=== PATIENT | female | born 1965 | race Two or more races ===

== ENCOUNTER → 2018-09-09 13:54 | Emergency (ER) | payer OTHER ==
--- NOTE | 2018-09-09 14:21 | ED ---
Substance Abuse/Use - HPI Summary HPI Summary: Patient is a 52 year old F brought in by EMS presenting to the ED with a chief complaint of alcohol intoxication. Patient was at a lawn constitution party when she drank an excessive amount. Patient was witnessed falling to her knees causing abrasions and swelling bilaterally. There was no head injury or LOC. Patients is rating knee pain 3/10. She has a Hx of sciatica which caused her low back pain. There are no aggravating or alleviating factors. Patient has a prior Hx of depression, anxiety, and PTSD from when she was 17 years old. Patient is asking for her sister to be called. - History Of Current Complaint Chief Complaint: EDSubstanceAbuse Stated Complaint: FALL PER EMS Time Seen by Provider: 09/09/18 14:04 Hx Obtained From: Patient, EMS Onset/Duration of Drug/ETOH Abuse: Days - 1 Ingestion History: Type/Name Of Drug - Beer Overdose Characteristics: Oral Timing Of Abuse: Intermittent Aggravating Factor(s): Nothing Alleviating Factor(s): Nothing Associated Signs And Symptoms: Altered Mental Status, Other: - bilateral knee abrasions and contusions - Allergies/Home Medications Allergies/Adverse Reactions: Allergies Allergy/AdvReac Type Severity Reaction Status Date / Time morphine Allergy Itching Verified 09/09/18 14:34 Sulfa (Sulfonamide Allergy Hives Verified 09/09/18 14:34 Antibiotics) PMH/Surg Hx/FS Hx/Imm Hx Previously Healthy: No Endocrine/Hematology History: Reports: Hx Thyroid Disease - hyper - resolved now Denies: Hx Diabetes Cardiovascular History: Denies: Hx Hypertension Respiratory History: Reports: Hx Asthma Denies: Hx Chronic Obstructive Pulmonary Disease (COPD) GI History: Denies: Hx Ulcer History: Reports: Other Problems/Disorders - UTI Sensory History: Reports: Hx Contacts or Glasses Opthamlomology History: Reports: Hx Contacts or Glasses Psychiatric History: Reports: Hx Substance Abuse - etoh - Cancer History Cancer Type, Location and Year: Breast CA Hx Chemotherapy: Yes - Surgical History Surgery Procedure, Year, and Place: laser to cervix r/t dysplagia 20 years ago Infectious Disease History: No Infectious Disease History: Denies: Hx Clostridium Difficile, Hx Hepatitis, Hx Human Immunodeficiency Virus (HIV), Hx of Known/Suspected MRSA, Hx Shingles, Hx Tuberculosis, Traveled Outside the [place] in Last 30 Days - Family History Known Family History: Positive: Other - Negative: cancer Negative: Cardiac Disease - Social History Alcohol Use: None Hx Substance Use: No Substance Use Type: Reports: None Hx Tobacco Use: No Smoking Status (MU): Never Smoked Tobacco Review of Systems Negative: Fever Positive: Other - Bilateral knee abrasion and swelling Neurological: Other - Altered Mental Status All Other Systems Reviewed And Are Negative: Yes Physical Exam - Summary Physical Exam Summary: Constitutional: Well-developed, Well-nourished, Alert. (-) Distressed Skin: Warm, Dry HENT: Normocephalic; Atraumatic Eyes: Conjunctiva normal Neck: Musculoskeletal ROM normal neck. (-) JVD, (-) Stridor, (-) Tracheal deviation Cardio: Rhythm regular, rate normal, Heart sounds normal; Intact distal pulses; The pedal pulses are 2+ and symmetric. Radial pulses are 2+ and symmetric. (-) Murmur Pulmonary/Chest wall: Effort normal. (-) Respiratory distress, (-) Wheezes, (-) Rales Abd: Soft, (-) tenderness, (-) Distension, (-) Guarding, (-) Rebound Musculoskeletal: (-) Edema, Knee abrasions on distal portion of knee Lymph: (-) Cervical adenopathy Neuro: Alert, Oriented x3 Psych: Mood and affect Normal Triage Information Reviewed: Yes Vital Signs On Initial Exam: Initial Vitals Temp Pulse Resp BP Pulse Ox 97.5 F 80 17 111/74 98 09/09/18 14:01 09/09/18 14:01 09/09/18 14:01 09/09/18 14:01 09/09/18 14:01 Vital Signs Reviewed: Yes Diagnostics - Vital Signs Vital Signs Temp Pulse Resp BP Pulse Ox 09/09/18 14:01 97.5 F 80 17 111/74 98 - Laboratory Lab Statement: Any lab studies that have been ordered have been reviewed, and results considered in the medical decision making process. Re-Evaluation - Re-Evaluation First Eval Re-Evaluation Time: 15:00 Comment: Patient was agitated but was able to be calmed down with discussion. Patient was ambulatory and was discharged with her sister. Course/Dx - Course Course Of Treatment: Patient is a 52 year old F brought in by EMS presenting to the ED with a chief complaint of alcohol intoxication. Patient was at a lawn constitution party when she drank an excessive amount. Patient was witnessed falling to her knees causing abrasions and swelling bilaterally. Patient was discharged to home with her sister. Diagnosed as knee abrasions, knee contusions, and acute alcohol intoxication. - Diagnoses Differential Diagnosis/HQI/PQRI: Positive: Alcohol Abuse, Other - Knee contusion , Knee abrasion Provider Diagnoses: Acute alcohol intoxication, Knee abrasion, Knee contusion Discharge - Sign-Out/Discharge Documenting (check all that apply): Patient Departure - discharge Patient Received Moderate/Deep Sedation with Procedure: No - Discharge Plan Condition: Stable Disposition: HOME Patient Education Materials: Abuse of Alcohol (ED), Knee Pain (ED) Referrals: Brianne Raygoza NP [Primary Care Provider] - 1 Day Additional Instructions: Follow up with your primary care physician in one day. Return to the emergency department for any new or worsening symptoms. - Billing Disposition and Condition Condition: STABLE Disposition: Home - Attestation Statements Document Initiated by Rhonda: Yes Documenting Scribe: Mark Gross Provider For Whom Rhonda is Documenting (Include Credential): Rajni Perrin MD Scribe Attestation: Mark Siu, scribed for Rajni Bueno MD on 09/09/18 at 1904. Scribe Documentation Reviewed: Yes Provider Attestation: The documentation as recorded by the Mark camacho accurately reflects the service I personally performed and the decisions made by , Rajni Bueno MD Status of Scribe Document: Viewed
[2018-09-09 14:44] VITALS: BP 123/75
== END | disposition home or self-care (01) ==
LOC: ED 13:54
DX: F10.129 Alcohol abuse with intoxication, unspecified (principal); R41.82 Altered mental status, unspecified; S80.212A Abrasion, left knee, initial encounter; S80.211A Abrasion, right knee, initial encounter; S80.02XA Contusion of left knee, initial encounter; S80.01XA Contusion of right knee, initial encounter; Z88.6 Allergy status to analgesic agent; Z88.2 Allergy status to sulfonamides; Z85.3 Personal history of malignant neoplasm of breast; W19.XXXA Unspecified fall, initial encounter; Y92.9 Unspecified place or not applicable
CPT/HCPCS: 99283

== ENCOUNTER 2022-02-07 21:32 | Inpatient (IN) ==
[2022-02-07] MEDS ORDERED: Albuterol HFA INHALER 8 gm MDI INH ONE (22:15)
[2022-02-07 23:41] LABS: ABS Lymphocytes 0.5 10^3/ul (1.0-4.8); ABS Monocytes 0.3 10^3/ul (0-0.8); ABS Neutrophils 4.6 10^3/ul (1.5-7.7); Eosinophil % 0.8 %; Hematocrit 31 % (35-47); Lymphocyte % 9.4 %; Mean Corpuscular HGB Conc 33 g/dL (31-36); Mean Corpuscular Hemoglobin 30 pg (27-31); Mean Corpuscular Volume 90 fL (80-97); Mean Platelet Volume 6.8 fL (7.4-10.4); Platelet Count 309 10^3/uL (150-450); Red Cell Distribution Width 14 % (10-15); White Blood Count 5.5 10^3/uL (3.5-10.8)
[2022-02-07 23:57] LABS: INR 1.16 (0.89-1.11)
[2022-02-08 00:05] LABS: Albumin 3.3 g/dL (3.2-5.2); Albumin/Globulin Ratio 1.3 (1-3); C Reactive Protein 39.07 mg/L (<8.01); Calcium 8.1 mg/dL (8.6-10.3); Globulin 2.5 g/dL (2-4); Potassium 3.9 mmol/L (3.5-5.0); Total Bilirubin 0.3 mg/dL (0.2-1.0); Total Protein 5.8 g/dL (6.4-8.9); eGFR CKD-EPI 102.2 (>60)
[2022-02-08 02:18] LABS: High Sensitivity Troponin 1 Hr 31 pg/mL (<15)
[2022-02-08] MEDS ORDERED: Iohexol 350 (CONTRAST) 500 ML MDV IV ONE (05:46)
[2022-02-08] MEDS ORDERED: Furosemide 20 mg/2 ml IV VIAL IV ONE (06:13)
[2022-02-08] MEDS ORDERED: HYDROcodone/ACETAMIN 5/325 mg TAB PO PRN (08:53)
[2022-02-08] MEDS ORDERED: Remdesivir 100 mg Vial 200 MG in NS 0.9% 250 ml 210 ML IV ONE (09:15)
[2022-02-08 09:40] LABS: TSH Ultra Thyroid Stim Horm 0.7 mcIU/mL (0.34-5.60)
[2022-02-08] MEDS: Enoxaparin 40 MG/0.4 ML SYR SUBCUT SCH (10:11)
[2022-02-08] MEDS: cefTRIAXone 1 gm/50 mL D5W 1 GM/50 ML BAG IV SCH (13:25)
[2022-02-08] MEDS: DOXYcycline 100 MG in NS 0.9% 250 ml 250 ML IVPB SCH ×2 (14:29→22:29)
[2022-02-08] MEDS: Albuterol HFA INHALER 8 gm MDI INH PRN (16:21)
[2022-02-08] MEDS ORDERED: Sodium Chloride(INHALANT) 7% 4 ML NEB.SOLN INH PRN (17:48)
[2022-02-08] MEDS ORDERED: Sodium Chloride(INHALANT) 7% 4 ML NEB.SOLN INH SCH (19:00)
[2022-02-08 22:30] LABS: Urine Benzodiazepine Screen Presumptive Positive (None Detect); Urine Cannabinoids Screen Presumptive Positive (None Detect); Urine Opiates Screen None Detected (None Detect)
[2022-02-09] MEDS: Albuterol HFA INHALER 8 gm MDI INH PRN ×2 (02:47→10:23)
[2022-02-09 05:20] LABS: ABS Lymphocytes 1.2 10^3/ul (1.0-4.8); ABS Monocytes 0.6 10^3/ul (0-0.8); ABS Neutrophils 6.9 10^3/ul (1.5-7.7); Hematocrit 28 % (35-47); Hemoglobin 9.5 g/dL (12.0-16.0); Lymphocyte % 14.2 %; Mean Corpuscular HGB Conc 33 g/dL (31-36); Mean Corpuscular Hemoglobin 30 pg (27-31); Mean Corpuscular Volume 89 fL (80-97); Platelet Count 319 10^3/uL (150-450); Red Blood Count 3.18 10^6 /uL (3.70-4.87); Red Cell Distribution Width 14 % (10-15); White Blood Count 8.7 10^3/uL (3.5-10.8)
[2022-02-09 06:10] LABS: Albumin 2.9 g/dL (3.2-5.2); Albumin/Globulin Ratio 1.2 (1-3); Calcium 8.1 mg/dL (8.6-10.3); Globulin 2.5 g/dL (2-4); Magnesium 1.8 mg/dL (1.9-2.7); Potassium 3.8 mmol/L (3.5-5.0); Total Bilirubin 0.3 mg/dL (0.2-1.0); Total Protein 5.4 g/dL (6.4-8.9)
[2022-02-09] MEDS: Remdesivir 100 mg Vial 100 MG in NS 0.9% 250 ml 230 ML IV SCH (09:39)
[2022-02-09] MEDS: Enoxaparin 40 MG/0.4 ML SYR SUBCUT SCH (09:42)
[2022-02-09] MEDS: cefTRIAXone 1 gm/50 mL D5W 1 GM/50 ML BAG IV SCH (11:33)
[2022-02-09] MEDS: DOXYcycline 100 MG in NS 0.9% 250 ml 250 ML IVPB SCH ×2 (11:33→22:30)
[2022-02-09] MEDS: Fluticasone NASAL SPRAY 50MCG 16 gm SPRAY BTL BOTH NARES SCH (15:38)
[2022-02-09] MEDS: Mometasone/Formoter 100/5 MDI INH SCH (20:56)
[2022-02-10 08:06] LABS: ABS Lymphocytes 1.8 10^3/ul (1.0-4.8); ABS Monocytes 0.7 10^3/ul (0-0.8); ABS Neutrophils 9.2 10^3/ul (1.5-7.7); Eosinophil % 0.1 %; Hematocrit 33 % (35-47); Hemoglobin 10.7 g/dL (12.0-16.0); Lymphocyte % 15.4 %; Mean Corpuscular HGB Conc 32 g/dL (31-36); Mean Corpuscular Hemoglobin 29 pg (27-31); Mean Corpuscular Volume 90 fL (80-97); Mean Platelet Volume 7.2 fL (7.4-10.4); Platelet Count 381 10^3/uL (150-450); Red Blood Count 3.71 10^6 /uL (3.70-4.87); Red Cell Distribution Width 14 % (10-15); White Blood Count 11.7 10^3/uL (3.5-10.8)
[2022-02-10] MEDS: Mometasone/Formoter 100/5 MDI INH SCH ×2 (08:30→21:20)
[2022-02-10 08:48] LABS: Albumin 3.1 g/dL (3.2-5.2); Albumin/Globulin Ratio 1.1 (1-3); Calcium 8.8 mg/dL (8.6-10.3); Globulin 2.7 g/dL (2-4); Magnesium 1.6 mg/dL (1.9-2.7); Potassium 3.8 mmol/L (3.5-5.0); Total Bilirubin 0.3 mg/dL (0.2-1.0); Total Protein 5.8 g/dL (6.4-8.9); eGFR CKD-EPI 107.5 (>60)
[2022-02-10] MEDS: Fluticasone NASAL SPRAY 50MCG 16 gm SPRAY BTL BOTH NARES SCH (09:00)
[2022-02-10] MEDS: Enoxaparin 40 MG/0.4 ML SYR SUBCUT SCH (09:01)
[2022-02-10] MEDS: cefTRIAXone 1 gm/50 mL D5W 1 GM/50 ML BAG IV SCH (10:15)
[2022-02-10] MEDS: DOXYcycline 100 MG in NS 0.9% 250 ml 250 ML IVPB SCH ×2 (10:16→22:46)
[2022-02-10] MEDS: Remdesivir 100 mg Vial 100 MG in NS 0.9% 250 ml 230 ML IV SCH (13:20)
[2022-02-10] MEDS ORDERED: Ondansetron 4 mg VIAL 2 MG/ML 2 ml VIAL IV PRN (14:24)
[2022-02-10] MEDS: Psyllium PAK PO PRN (14:58)
[2022-02-10] MEDS: Lidocaine PATCH 5% PATCH TRANSDERM SCH (14:58)
[2022-02-10] MEDS ORDERED: Magnesium Sulfate IV 3 GM in NS 0.9% 100 ml BAG 100 ML IVPB ONE (17:09)
[2022-02-10] MEDS ORDERED: Magnesium Sulfate 2 GM IV (Premix) IVPB ONE (17:30)
[2022-02-10] MEDS ORDERED: Magnesium Sulfate 1 GM IV 1 GM/100 ML BAG IV ONE (18:30)
[2022-02-11 06:32] LABS: ABS Lymphocytes 1.7 10^3/ul (1.0-4.8); ABS Monocytes 0.5 10^3/ul (0-0.8); ABS Neutrophils 4.4 10^3/ul (1.5-7.7); Eosinophil % 0.4 %; Hematocrit 32 % (35-47); Hemoglobin 10.7 g/dL (12.0-16.0); Lymphocyte % 25.1 %; Mean Corpuscular HGB Conc 33 g/dL (31-36); Mean Corpuscular Hemoglobin 30 pg (27-31); Mean Corpuscular Volume 89 fL (80-97); Mean Platelet Volume 7.2 fL (7.4-10.4); Platelet Count 357 10^3/uL (150-450); Red Blood Count 3.63 10^6 /uL (3.70-4.87); Red Cell Distribution Width 14 % (10-15); White Blood Count 6.6 10^3/uL (3.5-10.8)
[2022-02-11 07:19] LABS: Albumin 3.1 g/dL (3.2-5.2); Albumin/Globulin Ratio 1.2 (1-3); C Reactive Protein 15.37 mg/L (<8.01); Calcium 8.3 mg/dL (8.6-10.3); Globulin 2.6 g/dL (2-4); Magnesium 1.9 mg/dL (1.9-2.7); Potassium 3.3 mmol/L (3.5-5.0); Total Bilirubin 0.3 mg/dL (0.2-1.0); Total Protein 5.7 g/dL (6.4-8.9); eGFR CKD-EPI 109.5 (>60)
[2022-02-11] MEDS ORDERED: Potassium EFFERVES 25 meq TAB PO ONE (07:36)
[2022-02-11] MEDS: Mometasone/Formoter 100/5 MDI INH SCH ×2 (08:35→20:51)
[2022-02-11] MEDS: Enoxaparin 40 MG/0.4 ML SYR SUBCUT SCH (09:49)
[2022-02-11] MEDS: Psyllium PAK PO PRN (09:49)
[2022-02-11] MEDS: Remdesivir 100 mg Vial 100 MG in NS 0.9% 250 ml 230 ML IV SCH (09:52)
[2022-02-11] MEDS: Lidocaine PATCH 5% PATCH TRANSDERM SCH (09:52)
[2022-02-11] MEDS: Fluticasone NASAL SPRAY 50MCG 16 gm SPRAY BTL BOTH NARES SCH (10:00)
[2022-02-11] MEDS: cefTRIAXone 1 gm/50 mL D5W 1 GM/50 ML BAG IV SCH (11:26)
[2022-02-11] MEDS: DOXYcycline 100 MG in NS 0.9% 250 ml 250 ML IVPB SCH ×2 (14:05→22:00)
[2022-02-12 06:48] LABS: ABS Lymphocytes 1.9 10^3/ul (1.0-4.8); ABS Monocytes 0.5 10^3/ul (0-0.8); ABS Neutrophils 5.9 10^3/ul (1.5-7.7); Eosinophil % 0.3 %; Hematocrit 34 % (35-47); Hemoglobin 11.1 g/dL (12.0-16.0); Lymphocyte % 23.1 %; Mean Corpuscular HGB Conc 33 g/dL (31-36); Mean Corpuscular Hemoglobin 29 pg (27-31); Mean Corpuscular Volume 89 fL (80-97); Mean Platelet Volume 7.7 fL (7.4-10.4); Platelet Count 421 10^3/uL (150-450); Red Blood Count 3.79 10^6 /uL (3.70-4.87); Red Cell Distribution Width 14 % (10-15); White Blood Count 8.3 10^3/uL (3.5-10.8)
[2022-02-12 07:09] LABS: Albumin 3.3 g/dL (3.2-5.2); Albumin/Globulin Ratio 1.1 (1-3); Calcium 9.2 mg/dL (8.6-10.3); Globulin 3.1 g/dL (2-4); Magnesium 1.6 mg/dL (1.9-2.7); Potassium 3.7 mmol/L (3.5-5.0); Total Bilirubin 0.4 mg/dL (0.2-1.0); Total Protein 6.4 g/dL (6.4-8.9); eGFR CKD-EPI 105.3 (>60)
[2022-02-12] MEDS: Mometasone/Formoter 100/5 MDI INH SCH (08:34)
[2022-02-12] MEDS: Lidocaine PATCH 5% PATCH TRANSDERM SCH (09:12)
[2022-02-12] MEDS: Fluticasone NASAL SPRAY 50MCG 16 gm SPRAY BTL BOTH NARES SCH (09:13)
[2022-02-12] MEDS: Enoxaparin 40 MG/0.4 ML SYR SUBCUT SCH (09:14)
[2022-02-12] MEDS: Psyllium PAK PO PRN (10:50)
[2022-02-12] MEDS: DOXYcycline 100 MG in NS 0.9% 250 ml 250 ML IVPB SCH (10:52)
[2022-02-12] MEDS: Remdesivir 100 mg Vial 100 MG in NS 0.9% 250 ml 230 ML IV SCH (11:59)
[2022-02-12 12:29] LABS: HIV 4th Generation Nonreactive (Nonreactive)
[2022-02-12 14:54] VITALS: BP 155/100
== END 2022-02-12 18:00 | disposition home or self-care (01) | DRG 177 ==
LOC: ED 21:32 → EDHOLD 21:32 → SUATTDRO 02-08 08:47 → EDHOLD 02-08 15:45 → MED 02-08 16:11 → SUATTDRO 02-10 09:08 → UNDODISIN 02-12 13:35
PROVIDERS: ADMIT Hospitalist; ATTEND Internal Medicine